=== PATIENT | male | born 1985 | race Caucasian/White ===

== ENCOUNTER 2022-11-23 08:30 | Day surgery (SDC) | payer MEDICARE, MEDICAID ==
[2022-11-21 16:49] LABS: BASOPHILS # (AUTO) 0.1 X10'3 (0-0.2); BASOPHILS % (AUTO) 0.8 % (0-1); EOSINOPHILS # (AUTO) 0.2 X10'3 (0-0.9); EOSINOPHILS % (AUTO) 2.4 % (0-6); LYMPHOCYTES % (AUTO) 25.5 % (21-51); MEAN CORPUSCULAR HEMOGLOBIN 27.5 PG (27.0-31.0); MEAN CORPUSCULAR HGB CONC 32.9 g/dL (33.0-36.5); MEAN CORPUSCULAR VOLUME 83.6 FL (78-98); MEAN PLATELET VOLUME 8.2 FL (7.4-10.4); MONOCYTES # (AUTO) 0.6 X10'3 (0-0.9); MONOCYTES % (AUTO) 7.8 % (2-12); NEUTROPHILS % (AUTO) 63.5 % (42-75); PRE OP HEMATOCRIT 39.6 % (42.0-52.0); PRE OP PLATELET COUNT 301 X10'3 (140-440); PRE OP WHITE BLOOD COUNT 7.9 10'3 (4.8-10.8); RED BLOOD COUNT 4.74 X10'6 (4.70-6.10); RED CELL DISTRIBUTION WIDTH 15.8 % (11.5-14.5)
[2022-11-21 16:59] LABS: ALBUMIN 3.5 G/DL (3.4-5.0); ALBUMIN/GLOBULIN RATIO 0.6 (1.1-1.5); ALKALINE PHOSPHATASE 93 IU/L (46-116); BLOOD UREA NITROGEN 36 MG/DL (7-18); BUN/CREATININE RATIO 9.4 (10.0-20.0); CALCIUM 8.2 MG/DL (8.5-10.1); CHLORIDE 95 MMOL/L (99-107); CREATININE 3.83 MG/DL (0.60-1.10); PRE OP ALT 59 U/L (30-65); PRE OP ANION GAP 9 (8-16); PRE OP AST 31 U/L (10-37); PRE OP BILIRUB, TOTAL 0.3 MG/DL (0.0-1.0); PRE OP GLUCOSE 182 MG/DL (70-104); PRE OP POTASSIUM 3.4 MMOL/L (3.4-5.1); PRE OP SODIUM 137 MMOL/L (135-145); TOTAL CARBON DIOXIDE 33.5 MMOL/L (24-32); TOTAL PROTEIN 9.2 G/DL (6.4-8.2); eGFR 18 ML/MIN
[~2022-11-23] VITALS: Ht 177.8 cm; Wt 154.4 kg
[2022-11-23] VITALS (12 sets, daily range): BP systolic 126–176; BP diastolic 60–130; PULSE 91–97; RESP 12–21; TEMP 98.1; O2SAT 91–97
[~2022-11-23 08:30] MED LIST: ALBU18HF2; ALLO100T PO; CYCL-1 PO; DILT-115 PO; FENO160T PO; FLUO40CA PO; FURO80TA3 PO; GABA800T11 PO; HYDR-3972 PO; INSU100I31 SQ; INSU100V40 SQ; MULT-1085 PO; ONDA8TAB13 PO; PHO667C PO; SEMA1PEN3 SQ; SODI650T29; ZOLP-240; ceFAZolin inj. 3,000 MG in normal saline 100ml IV soln 100 ML IV ONE; famotidine 20mg tablet PO ONE; normal saline 1000ml 1,000 ML IV SCH
[2022-11-23] MEDS ORDERED: normal saline 500ml IV soln 500 ML IV SCH (09:11)
[2022-11-23] MEDS ORDERED: labetalol 20mg/4ml (5mg/ml) syringe IV PRN (09:15)
[2022-11-23] MEDS ORDERED: morphine 4 MG/ML inj SYRINge IV PRN (09:15)
[2022-11-23] MEDS ORDERED: hydrALAZINE 20mg/ml inj. IV PRN (09:15)
[2022-11-23] MEDS ORDERED: ondansetron/PF 4mg/2ml inj IV PRN (09:15)
[2022-11-23] MEDS ORDERED: morphine 2 MG/ML inj. syringe IV PRN (09:15)
[2022-11-23] MEDS ORDERED: ringers solution, lacted 1,000 ML IV SCH (09:15)
[2022-11-23] MEDS ORDERED: fentaNYL/PF 50MCG/1 ML 2ML syringe IV PRN ×2 (09:15)
--- NOTE | 2022-11-23 10:30 | NUR ---
SPOKE WITH DR CALVERT ABOUT PATIENT'S SMALL WOUND ON LEFT ABDOMEN UNDER PANIS. DOCTOR HAD ME CALL AN ORDER ABX FOR THIS PATIENT. SPOKE WITH NOAH AT HIS OFFICE. SHE WILL TAKE CARE OF THE ORDERS.
[2022-11-23] MEDS ORDERED: LIDOcaine 2% (20mg/ml) 5ml vial ONE (10:50)
[2022-11-23] MEDS ORDERED: mupirocin 2% ointment 22GM ONE (10:50)
[2022-11-23] MEDS ORDERED: desflurane 240ml liquid inh. IH ONE (10:50)
[2022-11-23] MEDS ORDERED: heparin sodium, porcine/PF 100unit/ml 5ML syringe ONE (10:50)
[2022-11-23] MEDS ORDERED: propofol 10mg/ml 20ml vial IV ONE (10:50)
[2022-11-23] MEDS ORDERED: fentaNYL/PF 50MCG/1 ML 2ML syringe ONE (10:50)
[2022-11-23] MEDS ORDERED: rocuronium 10mg/ml inj IV ONE (10:50)
[2022-11-23] MEDS ORDERED: ondansetron/PF 4mg/2ml inj ONE (10:50)
[2022-11-23] MEDS ORDERED: midazolam 1 mg/ML 2ml injection ONE (10:50)
[2022-11-23] MEDS ORDERED: sugammadex 200mg/2ml injection IV ONE (10:50)
[2022-11-23] MEDS ORDERED: fentaNYL/PF 50MCG/1 ML 2ML syringe IV ONE (11:00)
[2022-11-23] MEDS ORDERED: midazolam 1 mg/ML 2ml injection IV ONE (11:00)
[2022-11-23] MEDS ORDERED: BUPIVAcaine/PF 2.5 mg/ml (0.25%) 30ml vial IJ ONE (11:54)
--- NOTE | 2022-11-23 12:20 | NUR ---
Received from OR via [facility], accompanied by Anesthesiologist and report given by MARIANN Anesthesiologist. PATIENT WAKING UP, NO S/S OF PAIN, V/S WNL, SCD ON , PIV 20G LEFT HAND, ABDOMEN DRESSING C/D/I. Addendum: 11/23/22 at 1244 by Gigi Palafox RN Amended: Links added.
[2022-11-23] MEDS ORDERED: HYDROcodone/acetaminophen 10/325mg tab PO ONE (13:05)
--- NOTE | 2022-11-23 13:45 | NUR ---
ALL DISCHARGE CRITERIA HAS BEEN MET. VSS, PAIN AT A TOLERABLE LEVEL, ABLE TO SAFELY AMBULATE AND TRANSFER SELF. IV TAKEN OUT WITHOUT ANY COMPLICATIONS. ALL DISCHARGE INSTRUCTIONS COVERED WITH PATIENT AND ALL QUESTIONS ANSWERED. PATIENT TAKEN OUT VIA WHEELCHAIR WITH ALL BELONGINGS TO PERSONAL VEHICLE WHERE FAMILY DROVE PATIENT HOME. Addendum: 11/23/22 at 1352 by Gigi Palafox RN Amended: Links added.
== END 2022-11-23 13:45 | disposition home or self-care (01) ==
LOC: PAS 08:30
PROVIDERS: ATTEND Surgery
DX: T85.691A Other mechanical complication of intraperitoneal dialysis catheter, initial encounter (principal); E11.22 Type 2 diabetes mellitus with diabetic chronic kidney disease; I12.0 Hypertensive chronic kidney disease with stage 5 chronic kidney disease or end stage renal disease; N18.6 End stage renal disease; E66.01 Morbid (severe) obesity due to excess calories; Z68.43 Body mass index [BMI] 50.0-59.9, adult; F32.A Depression, unspecified; F41.9 Anxiety disorder, unspecified; Z91.018 Allergy to other foods; Z98.890 Other specified postprocedural states; Z79.899 Other long term (current) drug therapy; Z79.4 Long term (current) use of insulin; Y83.8 Other surgical procedures as the cause of abnormal reaction of the patient, or of later complication, without mention of misadventure at the time of the procedure; Y92.89 Other specified places as the place of occurrence of the external cause
CPT/HCPCS: 36415; 49325; 80053; 82948; 85025; J0690; J1642; J2250; J2270; J2405; J2704; J3010; J3490; J7030; J7040; Z7506; Z7508; Z7512; A4215; A4618; A6449

== ENCOUNTER 2023-01-04 14:47 | Day surgery (SDC) | payer MEDICARE, MEDICAID ==
[~2023-01-04] VITALS: Ht 177.8 cm; Wt 153.0 kg
[2023-01-04] VITALS (14 sets, daily range): BP systolic 133–169; BP diastolic 70–83; PULSE 90–96; RESP 13–17; TEMP 98.4; O2SAT 93–100
[~2023-01-04 14:47] MED LIST changes: +fentaNYL/PF 50MCG/1 ML 2ML syringe IV PRN; +hydrALAZINE 20mg/ml inj. IV PRN; +labetalol 20mg/4ml (5mg/ml) syringe IV PRN; +morphine 2 MG/ML inj. syringe IV PRN; +morphine 4 MG/ML inj SYRINge IV PRN; +ondansetron/PF 4mg/2ml inj IV PRN; +ringers solution, lacted 1,000 ML IV SCH
[2023-01-04 15:25] LABS: BASOPHILS # (AUTO) 0.1 X10'3 (0-0.2); BASOPHILS % (AUTO) 1.2 % (0-1); EOSINOPHILS # (AUTO) 0.1 X10'3 (0-0.9); EOSINOPHILS % (AUTO) 1.4 % (0-6); HEMATOCRIT 34.6 % (42.0-52.0); HEMOGLOBIN 11.5 g/dl (14.0-17.9); LYMPHOCYTES % (AUTO) 19.7 % (21-51); MEAN CORPUSCULAR HEMOGLOBIN 27.7 PG (27.0-31.0); MEAN CORPUSCULAR HGB CONC 33.1 g/dL (33.0-36.5); MEAN CORPUSCULAR VOLUME 83.8 FL (78-98); MEAN PLATELET VOLUME 7.9 FL (7.4-10.4); MONOCYTES # (AUTO) 0.6 X10'3 (0-0.9); MONOCYTES % (AUTO) 6.2 % (2-12); NEUTROPHILS # (AUTO) 7.1 X10'3 (1.8-7.7); NEUTROPHILS % (AUTO) 71.5 % (42-75); PLATELET COUNT 298 X10'3 (140-440); RED BLOOD COUNT 4.13 X10'6 (4.70-6.10); RED CELL DISTRIBUTION WIDTH 16.2 % (11.5-14.5); WHITE BLOOD COUNT 9.9 X10'3 (4.5-11.0)
[2023-01-04 15:37] LABS: ALANINE AMINOTRANSFERASE 57 U/L (12-78); ALBUMIN 3.5 G/DL (3.4-5.0); ALBUMIN/GLOBULIN RATIO 0.6 (1.1-1.5); ALKALINE PHOSPHATASE 94 IU/L (46-116); ANION GAP 9 (8-16); ASPARTATE AMINO TRANSFERASE 36 U/L (10-37); BILIRUBIN,TOTAL 0.2 MG/DL (0.1-1.0); BLOOD UREA NITROGEN 37 MG/DL (7-18); CHLORIDE 95 MMOL/L (99-107); CREATININE 4.11 MG/DL (0.60-1.10); GLUCOSE 159 MG/DL (70-104); SODIUM 135 MMOL/L (135-145); TOTAL CARBON DIOXIDE 30.6 MMOL/L (24-32); TOTAL PROTEIN 9.5 G/DL (6.4-8.2); eCRCL 26 ML/MIN; eGFR 17 ML/MIN
[2023-01-04] MEDS ORDERED: desflurane 240ml liquid inh. IH ONE (16:00)
[2023-01-04] MEDS ORDERED: LIDOcaine 2% (20mg/ml) 5ml vial ONE (16:00)
[2023-01-04] MEDS ORDERED: BUPIVAcaine/PF 2.5mg/ml (0.25%) 10ml vial ONE (16:22)
[2023-01-04] MEDS ORDERED: midazolam 1 mg/ML 2ml injection ONE (16:27)
[2023-01-04] MEDS ORDERED: fentaNYL/PF 50MCG/1 ML 2ML syringe ONE (16:27)
[2023-01-04] MEDS ORDERED: ondansetron/PF 4mg/2ml inj ONE (16:38)
[2023-01-04] MEDS ORDERED: rocuronium 10mg/ml inj IV ONE (16:38)
[2023-01-04] MEDS ORDERED: propofol inj 20 ML IV ONE (16:38)
[2023-01-04] MEDS ORDERED: BUPIVAcaine/PF 2.5 mg/ml (0.25%) 30ml vial IJ ONE (16:55)
[2023-01-04] MEDS ORDERED: sugammadex 200mg/2ml injection IV ONE (17:04)
[2023-01-04] MEDS ORDERED: heparin sodium, porcine/PF 100unit/ml 5ML syringe ONE ×2 (17:10→17:27)
[2023-01-04] MEDS ORDERED: bacitracin 15gm ointment TP ONE (17:22)
[2023-01-04] MEDS ORDERED: heparin sodium, porcine/PF 100unit/ml 5ML syringe IV ONE (17:25)
--- NOTE | 2023-01-04 17:45 | NUR ---
Received from OR via [facility], accompanied by Anesthesiologist DR FITZGERALD and report given by Anesthesiolgist. PT PRESENTS WITH PIV 20G LEFT HAND, NS RUNNING AT 20MLS/HR, ABD DRESSING WITH CATHETER CDI, VSS. Addendum: 01/04/23 at 1810 by Juana Pickering RN, RN Amended: Links added.
[2023-01-04] MEDS ORDERED: HYDROcodone/acetaminophen 10/325mg tab PO ONE (19:30)
--- NOTE | 2023-01-04 19:45 | NUR ---
DC HOME: ALL DISCHARGE CRITERIA HAS BEEN MET. VSS, PAIN AT TOLERABLE LEVEL. ABLE TO SAFELY AMBULATE AND TRANSFER SELF. IV TAKEN OUT WITHOUT ANY COMPLICATIONS. ALL DISCHARGE INSTRUCTIONS COVERED WITH PATIENT AND ALL QUESTIONS ANSWERED. PATIENT TAKEN OUT VIA WHEELCHAIR TO PERSONAL VEHICLE WHERE FAMILY/FRIEND DROVE PATIENT HOME. Addendum: 01/04/23 at 1947 by Juana Pickering RN, RN Amended: Links added.
[2023-01-09 07:40] LABS: ISTAT CREATININE 4.2 mg/dL (0.8-1.3); POC BUN/CREATININE RATIO 8.6 (5.4-32.0)
[2023-01-09 07:41] LABS: ISTAT HGB 13.3 g/dl (14.0-17.9); ISTAT IONIZED CALCIUM 0.99 mmol/L (1.03-1.32)
== END 2023-01-04 19:45 | disposition home or self-care (01) ==
LOC: PAS 14:47
PROVIDERS: ATTEND Surgery
DX: T85.691A Other mechanical complication of intraperitoneal dialysis catheter, initial encounter (principal); E11.22 Type 2 diabetes mellitus with diabetic chronic kidney disease; I12.0 Hypertensive chronic kidney disease with stage 5 chronic kidney disease or end stage renal disease; N18.6 End stage renal disease; E66.01 Morbid (severe) obesity due to excess calories; Z68.42 Body mass index [BMI] 45.0-49.9, adult; Z79.899 Other long term (current) drug therapy; Z91.018 Allergy to other foods; Y83.8 Other surgical procedures as the cause of abnormal reaction of the patient, or of later complication, without mention of misadventure at the time of the procedure; Y92.89 Other specified places as the place of occurrence of the external cause
CPT/HCPCS: 36415; 49324; 80053; 85025; 93005; C1750; J0690; J1642; J2250; J2270; J2405; J2704; J3010; J3490; J7030; J7040; J7120; Z7506; Z7508; Z7512; 80047; A4215; A4615; A4618; A6402; A7000